=== PATIENT | male | born 1975 ===

== ENCOUNTER 2017-04-28 09:34 | Emergency (ER) | payer OTHER ==
[2017-04-28 09:49] VITALS: BP 115/60; PULSE 82; RESP 20; TEMP 97.6; O2SAT 96
--- NOTE | 2017-04-28 10:29 | ED PDOC ---
HPI: General Adult Time Seen by Provider: 04/28/17 10:04 Chief Complaint (Nursing): Abnormal Skin Integrity Chief Complaint (Provider): Abnormal Skin Integrity History Per: Patient History/Exam Limitations: no limitations Onset/Duration Of Symptoms: Other (x 1 week) Current Symptoms Are (Timing): Still Present Additional Complaint(s): Nathan Barker is a 41 year male who presents to the emergency department with painful lump to right axilla for 4 days. Denies fever. No other medical problems at this time. Patient admits to shaving his right axilla. Patient reports he received Tetanus vaccine 1 year ago. PMD: No Family Provider. Past Medical History Reviewed: Historical Data, Nursing Documentation, Vital Signs Vital Signs: Last Vital Signs Temp 97.6 F 04/28/17 09:48 Pulse 82 04/28/17 09:48 Resp 20 04/28/17 09:48 BP 115/60 04/28/17 09:48 Pulse Ox 96 04/28/17 11:10 - Medical History PMH: No Chronic Diseases - Surgical History Surgical History: Appendectomy - Family History Family History: States: Unknown Family Hx - Home Medications Home Medications: Ambulatory Orders Medication Instructions Recorded Naproxen [Naprosyn] 500 mg PO BID PRN #15 tablet 04/28/17 Sulfamethoxazole/Trimethoprim 1 tab PO BID #14 tab 04/28/17 [Bactrim DS 800 mg-160 mg] - Allergies Allergies/Adverse Reactions: Allergies Allergy/AdvReac Type Severity Reaction Status Date / Time No Known Allergies Allergy Verified 04/28/17 09:57 Review of Systems ROS Statement: Except As Marked, All Systems Reviewed And Found Negative Constitutional: Negative for: Fever Skin: Positive for: Other (painful lump to right axilla) Physical Exam - Reviewed Nursing Documentation Reviewed: Yes Vital Signs Reviewed: Yes - Physical Exam Appears: Positive for: Well, No Acute Distress Skin: Negative for: Normal Color ((+): Right Axilla area: 2 cm area of induration, + fluctuance, no discharge, no bleeding, TTP) Cardiovascular/Chest: Positive for: Regular Rate, Rhythm Respiratory: Positive for: Normal Breath Sounds - ECG O2 Sat by Pulse Oximetry: 96 (RA) Pulse Ox Interpretation: Normal Medical Decision Making Medical Decision Making: Time: 10:04 Impression: Abscess Plan: - Will put ice first - Needle Aspiration Procedure Scribe Attestation: Documented by Vitaly Newberry, acting as a scribe for Eileen De Anda MD. Provider Scribe Attestation: All medical record entries made by the Scribe were at my direction and personally dictated by me. I have reviewed the chart and agree that the record accurately reflects my personal performance of the history, physical exam, medical decision making, and the department course for this patient. I have also personally directed, reviewed, and agree with the discharge instructions and disposition. Procedures - Time-Out Type of Procedure: Needle aspiration Site of Procedure: R axilla Correct Patient (with visual ID + MR# on ID Band): Yes Correct Procedure: Yes PA/Tech: [place] - Incision and Drainage Site: R axilla Blade Size: 18 gauge needle I & D Procedure: betadine prep, sterile dressing applied Progress: 1 cm 2% Lidocaine local infiltration, 2 cm purulent material expressed, wound culture obtained. Pt tolerated procedure well. Disposition - Clinical Impression Clinical Impression: Abscess of axilla, left - Patient ED Disposition Is Patient to be Admitted: No - Disposition Referrals: [facility] [Outside] Disposition: Routine/Home Disposition Time: 11:09 Condition: STABLE Prescriptions: Naproxen [Naprosyn] 500 mg PO BID PRN #15 tablet PRN Reason: Pain, Moderate (4-7) Sulfamethoxazole/Trimethoprim [Bactrim DS 800 mg-160 mg] 1 tab PO BID #14 tab Instructions: Abscess Incision and Drainage (ED), Abscess (ED) Forms: [employer] (Yoruba) Print Language: GEORGIAN
[2017-04-28] MEDS ORDERED: Lidocaine 2% Inj (20ml) ONE (10:30)
[2017-04-28] MEDS ORDERED: Lidocaine 2% Inj (20ml) INFIL STA (10:54)
[2017-04-28] MEDS ORDERED: Tmp-Smz 800 mg-160 mg DS Tab PO STA (10:55)
[2017-04-28] MEDS ORDERED: Naproxen 500 MG TAB PO STA (10:55)
[2017-04-28] MEDS ORDERED: Naproxen 500 MG TAB PO ONE (11:22)
[2017-04-28] MEDS ORDERED: Tmp-Smz 800 mg-160 mg DS Tab ONE (11:23)
== END 2017-04-28 11:38 | disposition home or self-care (01) ==
LOC: H.ER 09:34
DX: L02.412 Cutaneous abscess of left axilla (principal)